=== PATIENT | female | born 1965 | race Caucasian/White ===

== ENCOUNTER → 2018-01-16 | Outpatient (CLI) | payer MEDICARE, OTHER ==
[2018-01-16 13:25] LABS: ABSOLUTE EOSINOPHILS # (AUTO) 0.1 10^3/uL (0.0-0.6); ABSOLUTE LYMPHOCYTES (AUTO) 2.7 10^3/uL (0.5-4.7); ABSOLUTE MONOCYTES (AUTO) 0.5 10^3/uL (0.1-1.4); ABSOLUTE NEUT (AUTO) 2.9 10^3/uL (1.7-8.2); BASOPHILS % (AUTO) 0.5 % (0-2); EOSINOPHILS % (AUTO) 1.3 % (0-6); HEMATOCRIT 33.6 % (36.0-47.0); HEMOGLOBIN 10.9 g/dL (12.0-15.5); LYMPHOCYTES % (AUTO) 43.9 % (13-45); MEAN CORPUSCULAR HEMOGLOBIN 24.1 pg (27.0-33.4); MEAN CORPUSCULAR HGB CONC 32.5 g/dL (32.0-36.0); MEAN CORPUSCULAR VOLUME 74 fl (80-97); MONOCYTES % (AUTO) 7.4 % (3-13); PLATELET COUNT 327 10^3/uL (150-450); RED BLOOD COUNT 4.54 10^6/uL (3.72-5.28); RED CELL DISTRIBUTION WIDTH 15.8 % (11.5-14.0); SEGMENTED NEUTROPHILS % (AUTO) 46.9 % (42-78); TOTAL CELLS COUNTED % (AUTO) 100 %; WHITE BLOOD COUNT 6.2 10^3/uL (4.0-10.5)
[2018-01-16 13:51] LABS: IRON(TIBC) 51.3 ug/dL (37-170)
[2018-01-16 14:26] LABS: FERRITIN 7.43 ng/mL (11.1-264.0)
[2018-01-16 14:56] LABS: FOLATE 7.98 ng/mL (>2.76)
== END ==
LOC: OD 12:29
PROVIDERS: ATTEND Physician Assistant
DX: D50.9 Iron deficiency anemia, unspecified (principal); R53.83 Other fatigue; E55.9 Vitamin D deficiency, unspecified
CPT/HCPCS: 36415; 82306; 82607; 82728; 82746; 83540; 83550; 84466; 85025

== ENCOUNTER 2018-01-23 08:55 | Day surgery (SDC) | payer MEDICARE, OTHER ==
[~2018-01-23 08:55] MED LIST: PROPOFOL INJ 200 MG/20 ML VIAL IV ONE
[2018-01-23] MEDS ORDERED: PROPOFOL INJ 200 MG/20 ML VIAL IV ONE (11:44)
[2018-01-23 11:52] VITALS: BP 149/78
--- NOTE | 2018-01-23 13:22 | Operative Report ---
Operative Report DATE OF SURGERY: 01/23/18 Operative Report: The risks, benefits and alternatives of the procedure including risks of bleeding, perforation requiring surgery are explained to the patient in detail and informed consent is obtained. Patient is taken back to the endoscopy suite and placed in the left, lateral decubital position. Timeout was called. Propofol medication is administered. A rectal examination is done which did not reveal any masses, tears or fissures. An Olympus videoscope was inserted into the patient's rectum. The scope was then carefully advanced all the way to the cecum. The cecum was identified by the usual anatomical landmarks including the ileocecal valve as well as the appendiceal office. Photodocumentation is obtained. Prep is good. Scope was then sequentially pulled back via the rest segments of the colon including the ascending colon, hepatic flexure, transverse colon, splenic flexure, descending colon and finally into the rectosigmoid portions of the colon. Retroflexion maneuvers performed. The risks benefits and alternatives of the procedure explained to the patient in detail and informed consent is obtained.A GIF Olympus video scope was inserted into the patient's mouth and hypopharynx, the esophagus is identified intubated and insufflated, the scope was then advanced through the esophagus stomach and duodenum, retroflexion maneuver is done, the esophagus stomach and first and second portions of the duodenum examined PREOPERATIVE DIAGNOSIS: Change in bowel habits. Epigastric pain POSTOPERATIVE DIAGNOSIS: Melanosis coli. Right-sided colon Inflammation status post biopsy rule out lymphocytic, microscopic, collagenous colitis. Internal hemorrhoids. Gastritis, duodenitis. Status post biopsy rule out Helicobacter pylori OPERATION: Colonoscopy with biopsy. EGD with biopsy SURGEON: REX VAZ ANESTHESIA: LMAC TISSUE REMOVED OR ALTERED: As noted above. COMPLICATIONS: None. ESTIMATED BLOOD LOSS: None. INTRAOPERATIVE FINDINGS: As noted above. PROCEDURE: Patient tolerated the procedure well. No immediate postprocedure complications are noted. Patient discharged in good condition. Discharge date 01/23/2018. Discharge diet: Regular. Discharge activity: Regular. 2-3 week follow-up to discuss findings. We will wait on the pathology. Patient is instructed to call the office or proceed to the emergency room should there be any further problems or questions.
== END 2018-01-23 11:54 | disposition home or self-care (01) ==
LOC: END 08:55
PROVIDERS: ATTEND Internal Medicine Gastroenterology
DX: K29.50 Unspecified chronic gastritis without bleeding (principal); K63.89 Other specified diseases of intestine; K64.8 Other hemorrhoids; K52.9 Noninfective gastroenteritis and colitis, unspecified; K29.80 Duodenitis without bleeding; D64.9 Anemia, unspecified; E78.2 Mixed hyperlipidemia; E06.3 Autoimmune thyroiditis; E55.9 Vitamin D deficiency, unspecified; G35 Multiple sclerosis; Z88.0 Allergy status to penicillin; Z88.2 Allergy status to sulfonamides; Z88.7 Allergy status to serum and vaccine
CPT/HCPCS: 43239; 45380; 88305 ×2; J2704; 813

== ENCOUNTER → 2018-06-12 | Outpatient (CLI) | payer MEDICARE, OTHER ==
--- NOTE | 2018-06-12 14:05 | RADIOLOGY REPORT (SQ) ---
EXAM DESCRIPTION: MRI HEAD COMBO COMPLETED DATE/TIME: 06/12/2018 8:12 am REASON FOR STUDY: MS (G35), ABN GAIT (R26.9), ABN VISION (H53.9), ABSENCE OF SENSATION (R20.0 G35 M ULTIPLE SCLEROSIS COMPARISON: 11/26/2012 TECHNIQUE: Multiplanar imaging includes noncontrasted T1, T2, FLAIR, diffusion with ADC map and post gadolinium contrast T1 sequences. Images stored on PACS. CONTRAST TYPE AND DOSE: 10 mL Prohance. RENAL FUNCTION: Creatinine 0.6 GFR greater than 60 LIMITATIONS: None. FINDINGS: ANATOMY: No anomalies. Normal vascular flow voids. Pituitary fossa normal. CSF SPACES: Normal in size and contour. No hemorrhage. CEREBRUM: Sulci and gyri are normal in size and contour. There is considerable increased FLAIR and T 2 signal in the white matter tracts. There are no enhancing lesions. The only interval change is th at there is a very prominent plaque in the right periventricular region and the parietal lobe that is more prominent than on the prior study. See the image 20 series 8. POSTERIOR FOSSA: No signal alteration. No hemorrhage. No edema, masses, or mass effect. Internal haresh tory canals, cerebellopontine angles, mastoids normal. No enhancing lesions. No abnormal enhancement post contrast. DIFFUSION IMAGING: Negative for acute or subacute infarction. ORBITS: No masses. Globes normal. PARANASAL SINUSES: There is a large mucous retention cyst in the left maxillary sinus. OTHER: No other significant finding. IMPRESSION: Considerable white matter disease is present consistent with the history of MS. There is a conspicuous plaque in the right parietal lobe that is more prominent than on the prior study. Thi s does not enhance, however. EVIDENCE OF ACUTE STROKE: NO. TECHNICAL DOCUMENTATION: JOB ID: [id number] [employer]- All Rights Reserved Reading location - IP/workstation name: [email or web address]
== END ==
LOC: RAD 07:05
PROVIDERS: ATTEND Psychiatry & Neurology Neurology
DX: G35 Multiple sclerosis (principal)
CPT/HCPCS: 82565; 70553; A9576

== ENCOUNTER 2018-08-21 17:12 | Emergency (ER) | payer MEDICARE, OTHER ==
[2018-08-21] MEDS ORDERED: METHYLPREDNISOLONE INJ 1000 MG VIAL IV ONE (18:50)
--- NOTE | 2018-08-21 18:53 | ER Document Report ---
ED Medical Screen (RME) - General Chief Complaint: Eye Problem Stated Complaint: VISION ISSUE Time Seen by Provider: 08/21/18 18:40 Notes: RAPID MEDICAL EVALUATION DISCLOSURE I have seen this patient as part of a Rapid Medical Evaluation and, if applicable, placed any initially appropriate orders. The patient will be seen and fully evaluated, including a full history and physical exam, by a provider (in Main ED or Fast Track) when a room becomes available. 53-year-old female PMH multiple sclerosis here with complaints of bilateral blurry vision and "tunnel vision" ongoing for the past 3 days. It started Tuesday and has progressively worsened. Day by day, she thought that it would get better so she did not call her neurologist until today. Her neurologist, Dr. Gregg, told her to come here for high dose IV steroids. She reports that she has a history of optic neuritis but this was many years ago in 2004. She reports that at that time it was in the left eye only but this time it is in both eyes however otherwise feels similar. She reports that she has not had an MS flare in "a long time". EXAM CTAB RRR PERRL There are 2 small 1 mm right iris defects visualized TRAVEL OUTSIDE OF THE [place] IN LAST 30 DAYS: No - Related Data Allergies/Adverse Reactions: Penicillins Allergy (Severe, Verified 08/21/18 18:39) Shortness of Breath Tetanus Vaccines and Toxoid [Tetanus] Allergy (Severe, Verified 08/21/18 18:39) Anaphylaxis Sulfa (Sulfonamide Antibiotics) Allergy (Intermediate, Verified 08/21/18 18:39) RED,BLOTCHY Past Medical History - Past Medical History Cardiac Medical History: Denies: Hx Atrial Fibrillation, Hx Congestive Heart Failure, Hx Coronary Artery Disease, Hx Heart Attack, Hx Hypercholesterolemia, Hx Hypertension, Hx Peripheral Vascular Disease, Hx Pulmonary Embolism, Hx Heart Murmur Pulmonary Medical History: Denies: Hx Asthma, Hx Bronchitis, Hx COPD, Hx Pneumonia, Hx Respiratory Failure, Hx Sleep Apnea, Hx Tuberculosis Neurological Medical History: Denies: Hx Cerebrovascular Accident, Hx Seizures Endocrine Medical History: Denies: Hx Graves' Disease, Hx Hyperthyroidism, Hx Hypothyroidism Renal/ Medical History: Denies: Hx End Stage Renal Disease, Hx Kidney Stones, Hx Ovarian Cysts, Hx Peritoneal Dialysis, Hx Pelvic Inflammatory Disease Malignancy Medical History: Denies: Hx Breast Cancer, Hx Cervical Cancer, Hx Leukemia, Hx Lung Cancer, Hx Ovarian Cancer GI Medical History: Denies: Hx Crohn's Disease, Hx Gastroesophageal Reflux Disease, Hx Hiatal Hernia, Hx Irritable Bowel, Hx Liver Failure, Hx Pancreatitis, Hx Ulcer Musculoskeltal Medical History: Denies Hx Arthritis, Denies Hx Fibromyalgia, Denies Hx Multiple Sclerosis, Denies Hx Muscular Dystrophy Psychiatric Medical History: Reports: Hx Depression Denies: Hx Bipolar Disorder, Hx Dementia, Hx Post Traumatic Stress Disorder, Hx Schizophrenia Traumatic Medical History: Denies: Hx Fractures Infectious Medical History: Denies: Hx HIV Past Surgical History: Reports: Hx Hysterectomy, Hx Tubal Ligation. Denies: Hx Colostomy, Hx Pacemaker - Immunizations Hx Diphtheria, Pertussis, Tetanus Vaccination: Yes - PT ALLERGIC TO VACCINE Physical Exam - Vital signs Vitals: Temp Pulse Resp BP Pulse Ox 98.7 F 66 16 126/68 H 98 08/21/18 17:28 08/21/18 17:28 08/21/18 17:28 08/21/18 17:28 08/21/18 17:28 Course - Vital Signs Vital signs: Temp Pulse Resp BP Pulse Ox 98.7 F 66 16 126/68 H 98 08/21/18 17:28 08/21/18 17:28 08/21/18 17:28 08/21/18 17:28 08/21/18 17:28 Doctor's Discharge - Discharge Referrals: AGGIE GOMEZ MD [Primary Care Provider] - Follow up as needed
[2018-08-21 19:21] LABS: ABSOLUTE EOSINOPHILS # (AUTO) 0.1 10^3/uL (0.0-0.6); ABSOLUTE LYMPHOCYTES (AUTO) 3.2 10^3/uL (0.5-4.7); ABSOLUTE MONOCYTES (AUTO) 0.5 10^3/uL (0.1-1.4); ABSOLUTE NEUT (AUTO) 3.2 10^3/uL (1.7-8.2); BASOPHILS % (AUTO) 0.3 % (0-2); EOSINOPHILS % (AUTO) 2.1 % (0-6); HEMATOCRIT 34.3 % (36.0-47.0); HEMOGLOBIN 11.1 g/dL (12.0-15.5); LYMPHOCYTES % (AUTO) 45.2 % (13-45); MEAN CORPUSCULAR HEMOGLOBIN 24.7 pg (27.0-33.4); MEAN CORPUSCULAR HGB CONC 32.4 g/dL (32.0-36.0); MEAN CORPUSCULAR VOLUME 76 fl (80-97); MONOCYTES % (AUTO) 7.7 % (3-13); PLATELET COUNT 295 10^3/uL (150-450); RED BLOOD COUNT 4.49 10^6/uL (3.72-5.28); RED CELL DISTRIBUTION WIDTH 13.4 % (11.5-14.0); SEGMENTED NEUTROPHILS % (AUTO) 44.7 % (42-78); TOTAL CELLS COUNTED % (AUTO) 100 %; WHITE BLOOD COUNT 7.1 10^3/uL (4.0-10.5)
[2018-08-21 19:35] LABS: ALANINE AMINOTRANSFERASE 30 U/L (9-52); ALBUMIN 4.4 g/dL (3.5-5.0); ALKALINE PHOSPHATASE 70 U/L (38-126); ANION GAP 10 (5-19); ASPARTATE AMINO TRANSFERASE 28 U/L (14-36); BILIRUBIN,DIRECT 0.1 mg/dL (0.0-0.4); BILIRUBIN,TOTAL 0.2 mg/dL (0.2-1.3); BLOOD UREA NITROGEN 17 mg/dL (7-20); CARBON DIOXIDE 30 mmol/L (22-30); CHLORIDE 99 mmol/L (98-107); GLUCOSE 93 mg/dL (75-110); POTASSIUM 4.4 mmol/L (3.6-5.0); SODIUM 138.7 mmol/L (137-145); TOTAL PROTEIN 7.1 g/dL (6.3-8.2)
--- NOTE | 2018-08-21 20:02 | ER Document Report ---
ED General - General Chief Complaint: Eye Problem Stated Complaint: VISION ISSUE Time Seen by Provider: 08/21/18 18:40 Notes: Patient is a 53-year-old female that comes to the emergency department for chief complaint of tunnel vision. She has a history of multiple sclerosis, she states symptoms started 3 days ago but have worsened. She called her neurologist, Dr. Gregg in [facility], she was advised to come to the emergency department to start high-dose steroids. She states that she has had optic neuritis in the past, last was approximately 2004. She denies blurred vision, eye pain, tears, discharge. She denies headache. She denies any other complaints other than getting over a cold. For MS she takes Copaxone 40 mg subcu 3 times a week and she is on Neurontin. TRAVEL OUTSIDE OF THE [place] IN LAST 30 DAYS: No - Related Data Allergies/Adverse Reactions: Penicillins Allergy (Severe, Verified 08/21/18 18:39) Shortness of Breath Tetanus Vaccines and Toxoid [Tetanus] Allergy (Severe, Verified 08/21/18 18:39) Anaphylaxis Sulfa (Sulfonamide Antibiotics) Allergy (Intermediate, Verified 08/21/18 18:39) RED,BLOTCHY Past Medical History - General Information source: Patient - Social History Smoking Status: Never Smoker Chew tobacco use (# tins/day): No Frequency of alcohol use: None Drug Abuse: None Lives with: Family Family History: Reviewed & Not Pertinent Patient has suicidal ideation: No Patient has homicidal ideation: No - Past Medical History Cardiac Medical History: Denies: Hx Atrial Fibrillation, Hx Congestive Heart Failure, Hx Coronary Artery Disease, Hx Heart Attack, Hx Hypercholesterolemia, Hx Hypertension, Hx Peripheral Vascular Disease, Hx Pulmonary Embolism, Hx Heart Murmur Pulmonary Medical History: Denies: Hx Asthma, Hx Bronchitis, Hx COPD, Hx Pneumonia, Hx Respiratory Failure, Hx Sleep Apnea, Hx Tuberculosis Neurological Medical History: Reports: Other - Multiple sclerosis. Denies: Hx Cerebrovascular Accident, Hx Seizures Endocrine Medical History: Denies: Hx Graves' Disease, Hx Hyperthyroidism, Hx Hypothyroidism Renal/ Medical History: Denies: Hx End Stage Renal Disease, Hx Kidney Stones, Hx Ovarian Cysts, Hx Peritoneal Dialysis, Hx Pelvic Inflammatory Disease Malignancy Medical History: Denies: Hx Breast Cancer, Hx Cervical Cancer, Hx Leukemia, Hx Lung Cancer, Hx Ovarian Cancer GI Medical History: Denies: Hx Crohn's Disease, Hx Gastroesophageal Reflux Disease, Hx Hiatal Hernia, Hx Irritable Bowel, Hx Liver Failure, Hx Pancreatitis, Hx Ulcer Musculoskeletal Medical History: Denies Hx Arthritis, Denies Hx Fibromyalgia, Denies Hx Multiple Sclerosis, Denies Hx Muscular Dystrophy Psychiatric Medical History: Reports: Hx Depression Denies: Hx Bipolar Disorder, Hx Dementia, Hx Post Traumatic Stress Disorder, Hx Schizophrenia Traumatic Medical History: Denies: Hx Fractures Infectious Medical History: Denies: Hx HIV Past Surgical History: Reports: Hx Hysterectomy, Hx Tubal Ligation. Denies: Hx Colostomy, Hx Pacemaker - Immunizations Hx Diphtheria, Pertussis, Tetanus Vaccination: Yes - PT ALLERGIC TO VACCINE Review of Systems - Review of Systems Constitutional: No symptoms reported EENT: See HPI Cardiovascular: No symptoms reported Respiratory: No symptoms reported Gastrointestinal: No symptoms reported Genitourinary: No symptoms reported Female Genitourinary: No symptoms reported Musculoskeletal: No symptoms reported Skin: No symptoms reported Hematologic/Lymphatic: No symptoms reported Neurological/Psychological: No symptoms reported Physical Exam - Vital signs Vitals: Temp Pulse Resp BP Pulse Ox 98.7 F 66 16 126/68 H 98 08/21/18 17:28 08/21/18 17:28 08/21/18 17:28 08/21/18 17:28 08/21/18 17:28 - Notes Notes: GENERAL: Alert, interacts well. No acute distress. HEAD: Normocephalic, atraumatic. EYES: Pupils equal, round, and reactive to light. Extraocular movements intact. Sclera clear and not injected. No discharge. Patient with visual field deficits in every field, she cannot see the periphery or reliably tell me how many fingers I am holding up. ENT: Oral mucosa moist, tongue midline. Oropharynx unremarkable. Airway patent. Nares patent, no nasal septal hematoma, TM's intact. NECK: Full range of motion. Supple. Trachea midline. LUNGS: Clear to auscultation bilaterally, no wheezes, rales, or rhonchi. No respiratory distress. HEART: Regular rate and rhythm. No murmur ABDOMEN: Soft, non-tender. Non-distended. Bowel sounds present in all 4 quadrants. GENITOURINARY: Deferred EXTREMITIES: Moves all 4 extremities spontaneously. No edema, normal radial and dorsalis pedis pulses bilaterally. No cyanosis. BACK: no cervical, thoracic, lumbar midline tenderness. No saddle anesthesia, normal distal neurovascular exam. NEUROLOGICAL: Alert and oriented x3. Normal speech. [cranial nerves II through XII grossly intact]. PSYCH: Normal affect, normal mood. SKIN: Warm, dry, normal turgor. No rashes or lesions noted. Course - Re-evaluation Re-evalutation: My examination patient has the edges of her visual field as a deficit in all jerome. Normal pupils, normal EOMs, no eye pain, no headache. Patient had an MRI on 06/12/2018 that showed considerable white matter disease present consistent with history of MS and also a conspicuous plaque in the right parietal lobe that is more prominent than prior study. 08/21/18 21:10 Attempted to reach patient's neurologist through their office line and then through Replaced by [facility], however they do not have neurology information systems professor and the patient's neurologist does not take call. I have contacted [facility] to speak with their neurologist, pending callback. I spoke with Dr. Flowers, [facility]. I discussed history, physical examination, workup. He states that this is most consistent with optic neuritis, he recommends the patient be given 1000 mg of Solu-Medrol IV now and then subsequently daily for a total of 5 days. He states she can follow-up outpatient with her neurologist and have this established. He does not recommend transfer or additional intervention at this time. I discussed with patient, patient states she does not think that her neurologist can set up the infusion, requests this be set up here. A standing order was placed, she states she will still call her neurologist tomorrow for established follow-up and care. I discussed return precautions in detail with patient. Patient states satisfaction and agreement with plan. - Vital Signs Vital signs: Temp Pulse Resp BP Pulse Ox 98.5 F 81 18 109/61 98 08/21/18 21:57 08/21/18 21:57 08/21/18 21:57 08/21/18 21:57 08/21/18 21:57 - Laboratory Result Diagrams: 08/21/18 19:06 08/21/18 19:06 Laboratory results interpreted by me: 08/21/18 19:06 Hgb 11.1 L Hct 34.3 L MCV 76 L MCH 24.7 L Lymphocytes % 45.2 H Discharge - Discharge Clinical Impression: Vision changes, Multiple sclerosis Condition: Stable Disposition: HOME, SELF-CARE Additional Instructions: Your symptoms and evaluation are most consistent with optic neuritis from multiple sclerosis. I spoke with neurologist Dr. Flowers with [facility]. Recommendation is for you to receive 1000 mg of Solu-Medrol IV for 5 days. You have already received the first day. Call your neurologist in the morning to establish follow-up and additional management, we have also set up visits for you to receive the infusion daily here at the hospital as a nursing visit. This is a standing order. Return to the emergency department for any concerning or worsening symptoms including severe headache, additional changes or numbness, fever, or any other concerning or worsening symptoms. Referrals: AGGIE GOMEZ MD [Primary Care Provider] - Follow up as needed
[2018-08-21 21:58] VITALS: BP 109/61
== END 2018-08-21 21:57 | disposition home or self-care (01) ==
LOC: ER 17:12
DX: H53.483 Generalized contraction of visual field, bilateral (principal); G35 Multiple sclerosis; Z88.0 Allergy status to penicillin; Z88.2 Allergy status to sulfonamides; Z90.710 Acquired absence of both cervix and uterus
CPT/HCPCS: 99283; 96374; 36415; 83735; 85025; 80053; J2930

== ENCOUNTER 2018-10-31 11:15 | Day surgery (SDC) | payer MEDICARE, OTHER ==
[2018-10-31] MEDS ORDERED: PROPOFOL INJ 200 MG/20 ML VIAL IV ONE (13:07)
[2018-10-31] MEDS ORDERED: FENTANYL CITRATE INJ/PF 100 MCG/2 ML AMPUL IV PRN ×3 (13:28)
[2018-10-31] MEDS ORDERED: MEPERIDINE HCL/PF INJ 25 MG/1 ML DISP.SYRIN IV PRN (13:28)
[2018-10-31] MEDS ORDERED: DIPHENHYDRAMINE HCL 50 MG/ML VIAL IV PRN (13:28)
[2018-10-31] MEDS ORDERED: PROMETHAZINE HCL INJ 25 MG/1 ML VIAL IV PRN (13:28)
[2018-10-31] MEDS ORDERED: ONDANSETRON HCL INJ/PF 4 MG/2 ML SDV IV PRN (13:28)
[2018-10-31] MEDS ORDERED: ACETAMINOPHEN 325 MG TABLET PO PRN (14:21)
[2018-10-31] MEDS ORDERED: SIMETHICONE 80 MG TAB.CHEW PO PRN (14:21)
[2018-10-31] MEDS ORDERED: PROMETHAZINE HCL INJ 25 MG/1 ML VIAL INJ PRN (14:21)
--- NOTE | 2018-10-31 14:52 | Operative Report ---
Operative Report DATE OF SURGERY: 10/31/18 Operative Report: The risks, benefits and alternatives of the procedure including the risk of bleeding, perforation requiring surgery have been explained to the patient in detail and informed consent has been obtained. Patient is placed in a left, lateral decubital position. Timeout was called. Propofol medication is administered. Rectal examination is done which did not reveal any masses, tears or fissures. An Olympus videoscope was introduced into the patient's rectum. The scope was then carefully advanced all the way to the cecum. The cecum was identified by the usual anatomical landmarks including the ileocecal valve as well as the appendiceal office. Photodocumentation is obtained. Scope was then sequentially pulled back via the various segments of the colon including the ascending colon, hepatic flexure, transverse colon, splenic flexure, descending colon and finally into the rectosigmoid portions of the colon. Retroflexion maneuver was performed. PREOPERATIVE DIAGNOSIS: Change of bowel habits POSTOPERATIVE DIAGNOSIS: Significant melanosis coli but no obstruction. Biopsies obtained to rule out for lymphocytic colitis. Internal hemorrhoids OPERATION: Colonoscopy with biopsy SURGEON: REX VAZ ANESTHESIA: LMAC TISSUE REMOVED OR ALTERED: As noted above COMPLICATIONS: None. ESTIMATED BLOOD LOSS: None. INTRAOPERATIVE FINDINGS: As noted above PROCEDURE: Patient tolerated the procedure well. No immediate postprocedure complications are noted. Patient discharged in good condition. Discharge date 10/31/2018. Discharge diet: Regular. Discharge activity: Regular. 2-3-week follow-up to discuss findings. 5-7-year surveillance colonoscopy. Patient is instructed call the office or proceed to the emergency room should there be any further questions. Wait on pathology.
[2018-10-31 14:59] VITALS: BP 120/70
== END 2018-10-31 14:50 | disposition home or self-care (01) ==
LOC: OROUT 11:15
PROVIDERS: ATTEND Internal Medicine Gastroenterology
DX: K63.89 Other specified diseases of intestine (principal); K64.8 Other hemorrhoids; E78.2 Mixed hyperlipidemia; D64.9 Anemia, unspecified; E55.9 Vitamin D deficiency, unspecified; G35 Multiple sclerosis; I67.89 Other cerebrovascular disease; E06.3 Autoimmune thyroiditis; Z79.899 Other long term (current) drug therapy; Z88.2 Allergy status to sulfonamides; Z88.7 Allergy status to serum and vaccine; Z88.0 Allergy status to penicillin
CPT/HCPCS: 45380; 88305 ×2; J2704; 811

== ENCOUNTER → 2019-05-25 | Outpatient (CLI) | payer MEDICARE, OTHER ==
--- NOTE | 2019-05-25 11:10 | WOMENS IMAGING REPORT ---
EXAM DESCRIPTION: 3D SCREENING MAMMO BILAT COMPLETED DATE/TIME: 05/25/2019 10:21 am REASON FOR STUDY: Z12.31 ENCOUNTER FOR SCREENING MAMMOGRAM FOR MALIGNANT NEOPLASM OF BREAST Z12.31 ENCNTR SCREEN MAMMOGRAM FOR MALIGNANT NEOPLASM OF MAMTA COMPARISON: Multiple since 2010 EXAM PARAMETERS: Standard craniocaudal and mediolateral oblique views of each breast recorded using digital acquisition and breast tomosynthesis. Read with the assistance of CAD. .[facility] - [employer] Version 9.2 LIMITATIONS: None. FINDINGS: RIGHT BREAST MASSES: No suspicious masses. CALCIFICATIONS: No new or suspicious calcifications. ARCHITECTURAL DISTORTION: None. DEVELOPING DENSITY: None. ASYMMETRY: Focal asymmetry far upper outer quadrant right breast for which right breast 90 mediolate ral view, cone compression views, right breast X CC view and ultrasound are recommended for followup OTHER: No other significant findings. LEFT BREAST MASSES: No suspicious masses. CALCIFICATIONS: No new or suspicious calcifications. ARCHITECTURAL DISTORTION: None. DEVELOPING DENSITY: None. ASYMMETRY: None noted. OTHER: No other significant findings. IMPRESSION: Asymmetry right breast upper outer quadrant for which additional diagnostic mammograms a nd ultrasound are recommended No mammographic/tomosynthesis evidence for malignancy left breast 0 Incomplete: Needs Additional Imaging Evaluation and/or prior Mammograms for Comparison. BREAST DENSITY: b. There are scattered areas of fibroglandular density. BIRAD: ASSESSMENT: 0 Incomplete: Needs Additional Imaging Evaluation and/or prior Mammograms for C omparison. RECOMMENDATION: RECOMMENDED FOLLOW-UP: Right breast diagnostic mammograms and ultrasound The patient will be contacted for additional imaging. COMMENT: The patient has been notified of the results by letter per MQSA requirements. Additional no tification policies are in place for contacting patient with suspicious or incomplete findings. Quality ID #225: The [employer] recommends an annual screening mammogram for women aged 40 years or over. This facility utilizes a reminder system to ensure that all patients receive reminder letters, and/or direct phone calls for appointments. This includes reminders for routine scr eening mammograms, diagnostic mammograms, or other Breast Imaging Interventions when appropriate. Th is patient will be placed in the appropriate reminder system. TECHNICAL DOCUMENTATION: FINDING NUMBER: (1) ASSESSMENT: (1) JOB ID: [id number] [employer]- All Rights Reserved Reading location - IP/workstation name: [email or web address]
== END ==
LOC: WI 09:49
PROVIDERS: ATTEND Physician Assistant
DX: Z12.31 Encounter for screening mammogram for malignant neoplasm of breast (principal); N64.89 Other specified disorders of breast
CPT/HCPCS: 77063; 77067

== ENCOUNTER → 2019-05-31 | Outpatient (CLI) | payer MEDICARE, OTHER ==
--- NOTE | 2019-05-31 12:44 | WOMENS IMAGING REPORT ---
EXAM DESCRIPTION: RIGHT DIAGNOSTIC MAMMO W/CAD; U/S BREAST UNILAT LIMITED COMPLETED DATE/TIME: 05/31/2019 10:20 am; 05/31/2019 10:48 am REASON FOR STUDY: N63.11 RTDX; N63.11 RIGHT BREAST N63.11 UNSPECIFIED LUMP IN THE RIGHT BREAST, UPP ER OUTER ALISA COMPARISON: 05/25/2019, 01/08/2016, 08/14/2012, and 07/21/2011. EXAM PARAMETERS: True lateral and spot compression MLO and CC images acquired. LIMITATIONS: None. FINDINGS: BREAST LATERALITY: right MASSES: No suspicious masses. CALCIFICATIONS: No new or suspicious calcifications. ARCHITECTURAL DISTORTION: None. DEVELOPING DENSITY: None. ASYMMETRY: Asymmetric density in the upper-outer breast, imaged on the true lateral and MLO images bu t not clearly seen on CC images. OTHER: No other significant findings. BREAST ULTRASOUND: TECHNIQUE: Static and dynamic grayscale images acquired of the right breast in the specific areas of clinical/mammographic concern. Selected color Doppler images recorded. ELASTOGRAPHY PERFORMED: No. LIMITATIONS: None. FINDINGS: MASS: No mass identified. Normal glandular tissue. ELASTOGRAPHY CHARACTERISTICS: Not applicable. OTHER: No other significant finding. IMPRESSION: Asymmetric density in the upper-outer breast present on lateral and MLO images but not l ocalized on CC images. No abnormal findings on ultrasound. This was present on prior mammogram in 2 016. On older mammograms in 2011 and 2010 this was less noticeable but may have been in a slightly l ower location due to differences in positioning. This may represent focal parenchyma but would recom mend a short-term interval follow-up. BREAST DENSITY: c. The breasts are heterogeneously dense, which may obscure small masses. BIRAD: ASSESSMENT: 3 Probably benign finding. Initial short-interval follow-up suggested. RECOMMENDATION: RECOMMENDED FOLLOW UP: Birads 3: The patient will return in 6 months for follow-up i dayanna. SPECIFIC INTERVENTION/IMAGING/CONSULTATION RECOMMENDED:The patient will return for 6 month follow-up diagnostic mammography(tomosynthesis) and targeted breast ultrasound. COMMUNICATION:The imaging findings were not discussed with the patient. Her referring provider has be en notified of the findings. COMMENT: The patient has been notified of the results by letter per MQSA requirements. Additional no tification policies are in place for contacting patient with suspicious or incomplete findings. Quality ID #225: The [employer] recommends an annual screening mammogram for women aged 40 years or over. This facility utilizes a reminder system to ensure that all patients receive reminder letters, and/or direct phone calls for appointments. This includes reminders for routine scr eening mammograms, diagnostic mammograms, or other Breast Imaging Interventions when appropriate. Th is patient will be placed in the appropriate reminder system. TECHNICAL DOCUMENTATION: FINDING NUMBER: (1) ASSESSMENT: (1) JOB ID: [id number] [employer]- All Rights Reserved Reading location - IP/workstation name: [email or web address]-
== END ==
LOC: WI 09:50
PROVIDERS: ATTEND Physician Assistant
DX: N63.11 Unspecified lump in the right breast, upper outer quadrant (principal)
CPT/HCPCS: 76642

== ENCOUNTER → 2020-01-08 | Outpatient (CLI) | payer MEDICARE, OTHER ==
--- NOTE | 2020-01-08 16:45 | WOMENS IMAGING REPORT ---
EXAM DESCRIPTION: 3D DX MAMMO RIGHT UNILAT; U/S BREAST UNILATERAL, COMPL IMAGES COMPLETED DATE/TIME: 01/08/2020 9:39 am; 01/08/2020 10:10 am REASON FOR STUDY: D48.61 RT DX MAMMO; 6 MONTH FOLLOWUP D48.61 NEOPLASM OF UNCERTAIN BEHAVIOR OF RIG HT BREAST COMPARISON: Multiple since 2010 EXAM PARAMETERS: Right whole breast and cone compression Standard craniocaudal and mediolateral obli que images of the breast recorded I am going to right 90 mediolateral view using digital acquisition and breast tomosynthesis. Right breast ultrasound was also performed. Read with the assistance of CAD. .[facility] - [employer]ist Version 9.2 LIMITATIONS: None. FINDINGS: BREAST LATERALITY: Right MASSES: No suspicious masses. CALCIFICATIONS: No new or suspicious calcifications. ARCHITECTURAL DISTORTION: None. ASYMMETRY: None noted. OTHER: No other significant findings. Right breast ultrasound: Ultrasound right breast upper outer quadrant was performed. No discrete cystic or solid lesions. No worrisome acoustic absorption. No focal sonographic findings. IMPRESSION: No mammographic or sonographic evidence for malignancy right breast BREAST DENSITY: b. There are scattered areas of fibroglandular density. BIRAD: ASSESSMENT: 2 Benign findings. RECOMMENDATION: RECOMMENDED FOLLOW UP: Please continue yearly bilateral screening mammography/ tomos ynthesis in May 2020 SPECIFIC INTERVENTION/IMAGING/CONSULTATION RECOMMENDED:No additional intervention/ imaging/consultati on needed at this time. COMMUNICATION:The negative/benign results were communicated to the patient. COMMENT: The patient has been notified of the results by letter per SA requirements. Additional no tification policies are in place for contacting patient with suspicious or incomplete findings. Quality ID #225: The [employer] recommends an annual screening mammogram for women aged 40 years or over. This facility utilizes a reminder system to ensure that all patients receive reminder letters, and/or direct phone calls for appointments. This includes reminders for routine scr eening mammograms, diagnostic mammograms, or other Breast Imaging Interventions when appropriate. Th is patient will be placed in the appropriate reminder system. TECHNICAL DOCUMENTATION: FINDING NUMBER: (1) ASSESSMENT: (1) JOB ID: [id number] 2010 [employer]- All Rights Reserved Reading location - IP/workstation name: [email or web address]
--- NOTE | 2020-01-08 16:45 | WOMENS IMAGING REPORT ---
EXAM DESCRIPTION: 3D DX MAMMO RIGHT UNILAT; U/S BREAST UNILATERAL, COMPL IMAGES COMPLETED DATE/TIME: 01/08/2020 9:39 am; 01/08/2020 10:10 am REASON FOR STUDY: D48.61 RT DX MAMMO; 6 MONTH FOLLOWUP D48.61 NEOPLASM OF UNCERTAIN BEHAVIOR OF RIG HT BREAST COMPARISON: Multiple since 2010 EXAM PARAMETERS: Right whole breast and cone compression Standard craniocaudal and mediolateral obli que images of the breast recorded I am going to right 90 mediolateral view using digital acquisition and breast tomosynthesis. Right breast ultrasound was also performed. Read with the assistance of CAD. .[facility] [place] - [employer] Worker Version 9.2 LIMITATIONS: None. FINDINGS: BREAST LATERALITY: Right MASSES: No suspicious masses. CALCIFICATIONS: No new or suspicious calcifications. ARCHITECTURAL DISTORTION: None. ASYMMETRY: None noted. OTHER: No other significant findings. Right breast ultrasound: Ultrasound right breast upper outer quadrant was performed. No discrete cystic or solid lesions. No worrisome acoustic absorption. No focal sonographic findings. IMPRESSION: No mammographic or sonographic evidence for malignancy right breast BREAST DENSITY: b. There are scattered areas of fibroglandular density. BIRAD: ASSESSMENT: 2 Benign findings. RECOMMENDATION: RECOMMENDED FOLLOW UP: Please continue yearly bilateral screening mammography/ tomos ynthesis in May 2020 SPECIFIC INTERVENTION/IMAGING/CONSULTATION RECOMMENDED:No additional intervention/ imaging/consultati on needed at this time. COMMUNICATION:The negative/benign results were communicated to the patient. COMMENT: The patient has been notified of the results by letter per SA requirements. Additional no tification policies are in place for contacting patient with suspicious or incomplete findings. Quality ID #225: The [employer] recommends an annual screening mammogram for women aged 40 years or over. This facility utilizes a reminder system to ensure that all patients receive reminder letters, and/or direct phone calls for appointments. This includes reminders for routine scr eening mammograms, diagnostic mammograms, or other Breast Imaging Interventions when appropriate. Th is patient will be placed in the appropriate reminder system. TECHNICAL DOCUMENTATION: FINDING NUMBER: (1) ASSESSMENT: (1) JOB ID: [id number] 2010 [employer]- All Rights Reserved Reading location - IP/workstation name: [email or web address]
== END ==
LOC: WI 08:50
PROVIDERS: ATTEND Physician Assistant
DX: D48.61 Neoplasm of uncertain behavior of right breast (principal)
CPT/HCPCS: 76641; 77065; G0279

== ENCOUNTER 2020-05-13 07:12 | Day surgery (SDC) | payer MEDICARE, OTHER ==
[2020-05-13] MEDS ORDERED: PROPOFOL INJ 200 MG/20 ML VIAL IV ONE ×2 (07:35→08:59)
--- NOTE | 2020-05-13 09:27 | Operative Report ---
Operative Report DATE OF SURGERY: 05/13/20 Operative Report: The risk, benefits and alternatives of the procedure including the risk of bleeding, perforation requiring surgery have been explained to the patient in detail and informed consent has been obtained. Patient is placed in a left, lateral decubital position. Timeout was called. Propofol medication is administered. Rectal examination is done which did not reveal any masses, tears or fissures. An Olympus videoscope was introduced into the patient's rectum. Scope was then carefully advanced all the way to the cecum. The cecum was identified by the usual anatomical landmarks including the ileocecal valve as well as the appendiceal office. Photodocumentation is obtained. Scope was then sequentially pulled back via the various segments of the colon including the ascending colon, hepatic flexure, transverse colon, splenic flexure, descending colon and finding to the rectosigmoid portions of the colon. Retroflexion maneuver is performed. The risks benefits and alternatives of the procedure explained to the patient in detail and informed consent is obtained.A GIF Olympus video scope was inserted into the patient's mouth and hypopharynx, the esophagus is identified intubated and insufflated ,the scope was then advanced through the esophagus stomach and duodenum, retroflexion maneuver is done the esophagus stomach and first and second portions of the duodenum examined PREOPERATIVE DIAGNOSIS: Iron deficiency anemia POSTOPERATIVE DIAGNOSIS: Biopsies of the terminal ileum to rule out Crohn's disease. Biopsies in the right colon to rule out collagenous colitis. Melanosis coli. Internal hemorrhoids. No evidence of lower GI bleeding. Duodenitis status post biopsy rule out celiac disease. Gastritis status post biopsy rule out H. pylori. No evidence of upper GI bleeding up to the ligament of Treitz OPERATION: Colonoscopy with biopsy. EGD with biopsy SURGEON: REX VAZ ANESTHESIA: LMAC TISSUE REMOVED OR ALTERED: As noted above. COMPLICATIONS: None. ESTIMATED BLOOD LOSS: None. INTRAOPERATIVE FINDINGS: As noted above. PROCEDURE: Patient tolerated the procedure well. No immediate postprocedure complications are noted. Patient is discharged in good condition. Discharge date 05/13/2020. Discharge diet: Regular. Discharge activity: Regular. 2 to 3-week follow-up to discuss findings. Patient is instructed call the office or proceed to the emergency room should there be any further problems or questions. Wait on the pathology.
[2020-05-13 09:56] VITALS: BP 131/72
== END 2020-05-13 10:15 | disposition home or self-care (01) ==
LOC: END 07:12
PROVIDERS: ATTEND Internal Medicine Gastroenterology
DX: D50.9 Iron deficiency anemia, unspecified (principal); K52.9 Noninfective gastroenteritis and colitis, unspecified; K63.89 Other specified diseases of intestine; R10.32 Left lower quadrant pain; K29.50 Unspecified chronic gastritis without bleeding; K29.80 Duodenitis without bleeding; K21.9 Gastro-esophageal reflux disease without esophagitis; G35 Multiple sclerosis; E06.3 Autoimmune thyroiditis; Z88.0 Allergy status to penicillin; Z88.1 Allergy status to other antibiotic agents; Z88.7 Allergy status to serum and vaccine; Z68.28 Body mass index [BMI] 28.0-28.9, adult; Z86.73 Personal history of transient ischemic attack (TIA), and cerebral infarction without residual deficits; Z03.818 Encounter for observation for suspected exposure to other biological agents ruled out
CPT/HCPCS: 43239; 45380; 88305 ×2; 00813; J2704; 813

== ENCOUNTER → 2020-06-30 | Outpatient (CLI) | payer MEDICARE, OTHER ==
--- NOTE | 2020-06-30 12:01 | RADIOLOGY REPORT (SQ) ---
EXAM DESCRIPTION: U/S ABDOMEN LIMITED W/O DOP IMAGES COMPLETED DATE/TIME: 06/30/2020 11:46 am REASON FOR STUDY: (R10.11)RIGHT UPPER QUADRANT PAIN R10.11 RIGHT UPPER QUADRANT PAIN COMPARISON: None. TECHNIQUE: Dynamic and static grayscale images acquired of the abdomen and recorded on PACS. Additio nal selected color Doppler and spectral images recorded. LIMITATIONS: None. FINDINGS: PANCREAS: No masses. Visualized pancreatic duct normal caliber. LIVER: The liver measures 16.5 cm in length, within the upper limits of normal size. Normal echotex ture. LIVER VASCULATURE: Normal directional flow of the main portal vein and hepatic veins. GALLBLADDER: Gallstones. The gallbladder wall measures 2.0 mm, normal wall thickness. No perichole cystic fluid. ULTRASOUND-DETECTED TYLER'S SIGN: Negative. INTRAHEPATIC DUCTS AND COMMON DUCT: CBD measures 7.0 mm in diameter, at the upper limits of normal. The intrahepatic ducts normal caliber. No filling defects. INFERIOR VENA CAVA: Normal flow. AORTA: No aneurysm. RIGHT KIDNEY: The right kidney measures 9.0 mm in length, normal size. Normal echogenicity. No solid or suspicious masses. No hydronephrosis. No calcifications. PERITONEAL AND RIGHT PLEURAL SPACE: No ascites or effusions. OTHER: No other significant findings. IMPRESSION: 1. Cholelithiasis. The common bile duct measures 7.0 mm in diameter at the upper limit s of normal. TECHNICAL DOCUMENTATION: JOB ID: [id number] 2010 [employer]- All Rights Reserved Reading location - IP/workstation name: [email or web address]
--- NOTE | 2020-06-30 13:24 | RADIOLOGY REPORT (SQ) ---
EXAM DESCRIPTION: NM HIDA SCAN IMAGES COMPLETED DATE/TIME: 06/30/2020 12:58 pm REASON FOR STUDY: (R10.11)RIGHT UPPER QUADRANT PAIN R10.11 RIGHT UPPER QUADRANT PAIN COMPARISON: None. RADIONUCLIDE AND DOSE: DOSAGE RADIONUCLIDE: 5.0 millicuries Tc99m Mebrofenin. DOSAGE MORPHINE: Not required. The route of agent administration: Intravenous TECHNIQUE: Serial imaging right upper quadrant up to 60 minutes following injection of radionuclide. Patient imaged AP and Right Lateral. LIMITATIONS: None. FINDINGS: LIVER: Normal visualization without areas of photopenia. INTRA-HEPATIC BILE DUCTS: Temporal visualization normal. No dilatation. COMMON BILE DUCT: Normal without dilatation or delayed visualization. GALLBLADDER: Normal visualization. OTHER: No other significant finding. IMPRESSION: 1. NORMAL STUDY WITHOUT CYSTIC OR COMMON DUCT OBSTRUCTION. TECHNICAL DOCUMENTATION: JOB ID: [id number] 2010 [employer]- All Rights Reserved Reading location - IP/workstation name: [email or web address]
== END ==
LOC: RAD 11:12
PROVIDERS: ATTEND Nurse Practitioner Family
DX: R10.11 Right upper quadrant pain (principal)
CPT/HCPCS: 76705; 78226; A9537; Q9969